=== PATIENT | male | born 1995 | race Two or more races ===

== ENCOUNTER 2022-03-08 07:44 | Emergency (ER) | payer MEDICAID ==
[~2022-03-08] VITALS: Ht 165.1 cm; Wt 88.0 kg
[2022-03-08] MEDS ORDERED: ONDANSETRON HCL 4MG/2ML INJ IV ONE (09:00)
[2022-03-08] MEDS ORDERED: NALOXONE HCL 1 MG/ML 2ML VIAL IV ONE ×2 (09:00→15:00)
[2022-03-08 10:13] LABS: CLARITY URINE CLEAR (CLEAR); COLOR URINE YELLOW (YELLOW); KETONES URINE NEGATIVE (NEGATIVE); LEUKOCYTE ESTERASE URINE NEGATIVE (NEGATIVE); NITRITE URINE POSITIVE (NEGATIVE); OCCULT BLOOD URINE TRACE (NEGATIVE); PROTEIN URINE TRACE (NEGATIVE); SPECIFIC GRAVITY URINE 1.009 (1.005-1.030); UROBILINOGEN URINE 0.2 E.U./dL (0.2-1.0)
[2022-03-08 10:17] LABS: HEMATOCRIT. 41.7 % (42.0-52.0); HEMOGLOBIN. 13.7 g/dL (14.0-18.0); MEAN CORPUSCULAR HEMOGLOBIN 27.2 pg (28.0-32.0); MEAN PLATELET VOLUME 7.1 fl (7.4-10.4); PLATELET 373 x1000/uL (130-400); RED BLOOD CELL COUNT 5.02 mill/uL (4.7-6.1); RED CELL DISTRIBUTION WIDTH 13.3 % (11.6-14.6)
[2022-03-08 10:25] LABS: *AMPHETAMINES SCREEN URINE PRESUMTIVE POSITIVE (NEGATIVE); *BARBITURATES SCREEN URINE NEGATIVE (NEGATIVE); *BENZODIAZEPINES SCREEN URINE NEGATIVE (NEGATIVE); *COCAINE SCREEN URINE PRESUMTIVE POSITIVE (NEGATIVE); CANNABINOID URINE SCREEN NEGATIVE (NEGATIVE); METHADONE URINE SCREEN NEGATIVE (NEGATIVE); OPIATES URINE SCREEN NEGATIVE (NEGATIVE); PHENCYCLIDINE URINE SCREEN NEGATIVE (NEGATIVE)
[2022-03-08 10:45] LABS: ETHANOL BLOOD < 10 mg/dL
[2022-03-08 10:50] LABS: CHLORIDE 111 mEq/L (98-107)
[2022-03-08] MEDS ORDERED: NALO4SPR BOTHNSTRLS (11:21)
[2022-03-08 11:27] LABS: PLATELET ESTIMATE NORMAL
[2022-03-08] MEDS ORDERED: NITR100C PO (11:53)
[2022-03-08 17:33] VITALS: BP 128/65
[2022-03-09] MEDS ORDERED: NALO4SPR BOTHNSTRLS (00:48)
== END 2022-03-08 17:36 | disposition home or self-care (01) ==
LOC: ER 07:44 → EDBD 07:44 → ER 17:36
DX: T40.2X1A Poisoning by other opioids, accidental (unintentional), initial encounter (principal); R51.9 Headache, unspecified; Y92.9 Unspecified place or not applicable
CPT/HCPCS: 36415; 70450; 80053; 80305; 80320; 81003; 85025; 96374; 99291; J2310; J2405; G0480

== ENCOUNTER 2022-03-08 19:18 | Inpatient (IN) | payer MEDICAID, OTHER ==
[~2022-03-08] VITALS: Ht 170.2 cm; Wt 94.5 kg
[~2022-03-08 19:18] MED LIST: NALO4SPR BOTHNSTRLS; NITR100C PO
[2022-03-08] MEDS ORDERED: NALOXONE HCL 1 MG/ML 2ML VIAL IV ONE (19:45)
[2022-03-08 20:36] LABS: HEMATOCRIT. 42.6 % (42.0-52.0); HEMOGLOBIN. 13.9 g/dL (14.0-18.0); MEAN CORPUSCULAR HEMOGLOBIN 27.1 pg (28.0-32.0); MEAN CORPUSCULAR VOLUME 83.1 fL (80.0-94.0); MEAN PLATELET VOLUME 7.4 fl (7.4-10.4); PLATELET 452 x1000/uL (130-400); RED BLOOD CELL COUNT 5.13 mill/uL (4.7-6.1); RED CELL DISTRIBUTION WIDTH 13.4 % (11.6-14.6)
[2022-03-08 20:42] LABS: CHLORIDE 104 mEq/L (98-107)
[2022-03-08 20:50] LABS: ETHANOL BLOOD < 10 mg/dL
[2022-03-08 21:11] LABS: PLATELET ESTIMATE SLIGHTLY INCREASED
[2022-03-09] MEDS ORDERED: NALO4SPR BOTHNSTRLS (00:48)
[2022-03-09] MEDS ORDERED: NALOXONE HCL 1 MG/ML 2ML VIAL IV ONE (06:30)
[2022-03-09] MEDS ORDERED: OLANZAPINE 10 MG/VIAL IM ONE (06:45)
[2022-03-09] MEDS ORDERED: ONDANSETRON HCL 4MG/2ML INJ IV PRN (13:45)
[2022-03-09] MEDS ORDERED: ACETAMINOPHEN 325MG TABLET PO PRN (13:45)
[2022-03-09] MEDS ORDERED: IPRATROPIUM/ALBUTEROL 0.5-3(2.5)MG/3ML NEB HHN PRN (13:45)
[2022-03-09 14:00] VITALS: BP 116/73
[2022-03-09] MEDS: CEFTRIAXONE 1,000 MG in DEXTROSE 5% WATER 50 ML IV SCH (17:10)
[2022-03-09 17:13] LABS: CHLORIDE 104 mEq/L (98-107)
[2022-03-09 17:20] LABS: HEMATOCRIT. 35.5 % (42.0-52.0); HEMOGLOBIN. 12.4 g/dL (14.0-18.0); MEAN CORPUSCULAR HEMOGLOBIN 28.3 pg (28.0-32.0); MEAN PLATELET VOLUME 7.5 fl (7.4-10.4); PLATELET 325 x1000/uL (130-400); RED BLOOD CELL COUNT 4.39 mill/uL (4.7-6.1); RED CELL DISTRIBUTION WIDTH 13.3 % (11.6-14.6)
[2022-03-09] MEDS: AZITHROMYCIN 500 MG in DEXT 5% WATER 250 ML IV SCH (19:14)
[2022-03-09 20:00] VITALS: BP 121/80
[2022-03-09 23:11] LABS: PLATELET ESTIMATE NORMAL
[2022-03-10] VITALS: BP 129/71
[2022-03-10 04:00] VITALS: BP 116/52
[2022-03-10 08:00] VITALS: BP 124/61
[2022-03-10 12:00] VITALS: BP 120/70
[2022-03-10 16:00] VITALS: BP 125/65
[2022-03-10] MEDS: AZITHROMYCIN 500 MG in DEXT 5% WATER 250 ML IV SCH (17:51)
[2022-03-10] MEDS: CEFTRIAXONE 1,000 MG in DEXTROSE 5% WATER 50 ML IV SCH (17:53)
[2022-03-10 19:51] VITALS: BP 114/63
[2022-03-11] VITALS: BP 111/62
[2022-03-11 04:00] VITALS: BP 107/69
[2022-03-11 08:00] VITALS: BP 119/66
[2022-03-11] MEDS ORDERED: LEVO500T90 MT (10:04)
[2022-03-11 12:00] VITALS: BP 111/63
[2022-03-11 12:08] VITALS: BP 119/66
[2022-03-11 13:55] LABS: CHLORIDE 101 mEq/L (98-107)
[2022-03-11 14:05] LABS: BASOPHILS % 0.3 % (0.0-2.0); EOSINOPHILS % 0.9 % (0.0-5.0); HEMATOCRIT. 40.6 % (42.0-52.0); HEMOGLOBIN. 13.5 g/dL (14.0-18.0); MEAN CORPUSCULAR HEMOGLOBIN 27.4 pg (28.0-32.0); MEAN CORPUSCULAR VOLUME 82.6 fL (80.0-94.0); MEAN PLATELET VOLUME 7.8 fl (7.4-10.4); MONOCYTES % 7.7 % (2.0-8.0); NEUTROPHILS % 71.1 % (40.0-76.0); PLATELET 327 x1000/uL (130-400); RED BLOOD CELL COUNT 4.91 mill/uL (4.7-6.1)
[2022-03-11 15:26] LABS: CLARITY URINE CLOUDY (CLEAR); COLOR URINE DARK YELLOW (YELLOW); KETONES URINE TRACE (NEGATIVE); LEUKOCYTE ESTERASE URINE 1+ (NEGATIVE); NITRITE URINE NEGATIVE (NEGATIVE); OCCULT BLOOD URINE NEGATIVE (NEGATIVE); PROTEIN URINE NEGATIVE (NEGATIVE); SPECIFIC GRAVITY URINE 1.024 (1.005-1.030)
== END 2022-03-11 16:43 | disposition home or self-care (01) | DRG 720 ==
LOC: ER 19:18 → 6WST 03-09 10:41 → ENRESERV 03-09 10:49
PROVIDERS: ADMIT Internal Medicine; ATTEND Internal Medicine
DX: A41.9 Sepsis, unspecified organism (principal); J96.01 Acute respiratory failure with hypoxia; G92.9 Unspecified toxic encephalopathy; J18.9 Pneumonia, unspecified organism; T40.411A Poisoning by fentanyl or fentanyl analogs, accidental (unintentional), initial encounter; Y92.89 Other specified places as the place of occurrence of the external cause; Z71.51 Drug abuse counseling and surveillance of drug abuser
CPT/HCPCS: 36415; 71045; 80048; 80053; 80320; 81003; 82962; 85025; 99291; J0456; J0696; J2310; J3490; J7060; G0480

== ENCOUNTER 2024-11-13 14:53 | Emergency (ER) | payer OTHER ==
[~2024-11-13] VITALS: Ht 172.7 cm; Wt 77.0 kg
[~2024-11-13 14:53] MED LIST changes: +LEVO750T68 MT; -NITR100C PO
[2024-11-13 14:55] VITALS: BP 129/79; PULSE 116; RESP 18; TEMP 37; O2SAT 98
[2024-11-13] MEDS: AMOXICILLIN/POTASSIUM CLAVULANATE 875/125MG TAB PO ONE (16:07)
[2024-11-13 18:27] LABS: BASOPHILS % 0.2 % (0.0-2.0); DIFFERENTIAL COMMENT 0; EOSINOPHILS % 0.3 % (0.0-5.0); HEMATOCRIT. 34.2 % (36.0-48.0); HEMOGLOBIN. 10.9 g/dL (12.0-16.0); LYMPHOCYTES % 12.8 % (20.0-50.0); MEAN CORPUSCULAR HEMOGLOBIN 25.5 pg (28.0-32.0); MEAN CORPUSCULAR VOLUME 79.9 fL (81.0-99.0); MEAN PLATELET VOLUME 6.6 fl (7.4-10.4); MONOCYTES % 4.4 % (2.0-8.0); NEUTROPHILS % 82.3 % (40.0-76.0); PLATELET 648 x1000/uL (130-400); RED BLOOD CELL COUNT 4.28 mill/uL (4.2-5.4); RED CELL DISTRIBUTION WIDTH 14.7 % (11.6-14.6); WHITE BLOOD COUNT 10.3 x1000/uL (4.5-11.0)
[2024-11-13 18:36] LABS: PROTHROMBIN TIME 10.5 sec (9.6-11.0)
[2024-11-13 18:37] LABS: HCG SCREEN NEGATIVE
[2024-11-13 18:49] LABS: CHLORIDE 105 mEq/L (98-107); POTASSIUM 3.8 mEq/L (3.5-5.1); SODIUM 140 mEq/L (136-145)
[2024-11-13 18:50] LABS: CALCIUM 8.7 mg/dL (8.7-10.4); CARBON DIOXIDE 27 mEq/L (21-32)
[2024-11-13 18:55] LABS: CREATININE 0.6 mg/dL (0.6-1.0); GLUCOSE 138 mg/dL (70-105); UREA NITROGEN BLOOD 15 mg/dL (9-23)
[2024-11-13] MEDS ORDERED: AMOX1TAB16 MT (19:01)
[2024-11-13] MEDS ORDERED: TOPUD PO (19:02)
== END 2024-11-13 19:15 | disposition home or self-care (01) ==
LOC: ER 14:53
DX: S41.152A Open bite of left upper arm, initial encounter (principal); S01.85XA Open bite of other part of head, initial encounter; J45.909 Unspecified asthma, uncomplicated; M41.9 Scoliosis, unspecified; Z79.899 Other long term (current) drug therapy; Z59.00 Homelessness unspecified; W54.0XXA Bitten by dog, initial encounter; Y93.01 Activity, walking, marching and hiking; Y99.8 Other external cause status; Y92.89 Other specified places as the place of occurrence of the external cause
CPT/HCPCS: 36415; 70486; 73090; 80048; 84703; 85025; 99284

== ENCOUNTER 2025-05-04 06:37 | Emergency (ER) | payer OTHER ==
[~2025-05-04] VITALS: Ht 162.6 cm; Wt 77.0 kg
[~2025-05-04 06:37] MED LIST changes: +AMOX1TAB16 MT; +TOPUD PO
[2025-05-04 06:39] VITALS: TEMP 36.7; O2SAT 97
[2025-05-04] MEDS: ONDANSETRON 4MG ODT PO ONE (07:00)
[2025-05-04 08:50] VITALS: BP 102/74
[2025-05-04] MEDS ORDERED: NALO4SPR BOTHNSTRLS (09:22)
[2025-05-04 10:35] VITALS: PULSE 94; RESP 18; O2SAT 100
== END 2025-05-04 10:39 | disposition home or self-care (01) ==
LOC: ER 06:37
DX: T40.2X1A Poisoning by other opioids, accidental (unintentional), initial encounter (principal); Z79.899 Other long term (current) drug therapy; Y92.89 Other specified places as the place of occurrence of the external cause
CPT/HCPCS: 99291; 82962; Q0162